=== PATIENT | male | born 1960 | race Asian ===

== ENCOUNTER 2025-04-03 12:17 | Outpatient (CLI) | payer OTHER, SELFPAY | END 2025-04-03 12:18 | disposition home or self-care (01) | PROVIDERS: Visit Provider Family Medicine | DX: Z00.00 Encounter for general adult medical examination without abnormal findings (principal); E78.00 Pure hypercholesterolemia, unspecified; I10 Essential (primary) hypertension; E11.9 Type 2 diabetes mellitus without complications; Z78.9 Other specified health status; E55.9 Vitamin D deficiency, unspecified | CPT/HCPCS: 80053; 80061; 82043; 82306; 82570; 82607; 84443; G0103 ==

== ENCOUNTER 2025-06-02 11:49 | Outpatient (CLI) | payer OTHER, SELFPAY | END 2025-06-02 11:50 | disposition home or self-care (01) | LOC: LKVREF 11:50 | PROVIDERS: PCP Family Medicine; Visit Provider Family Medicine | DX: R97.20 Elevated prostate specific antigen [PSA] (principal) | CPT/HCPCS: 84153; 84154 ==